=== PATIENT | male | born 1970 | race Caucasian/White ===

== ENCOUNTER 2021-02-15 12:22 | Emergency (ER) | payer OTHER ==
[~2021-02-15] VITALS: Ht 180.3 cm; Wt 82.1 kg
--- NOTE | 2021-02-15 12:42 | NUR ---
PT BIBSELF C/O L small finger pain and swelling s/p glf while hiking 1 hr ago. SKIN INTACT. PT A/OX4. TOLERATING R/A WELL WITH NO SOB
--- NOTE | 2021-02-15 12:44 | NUR ---
KHADAR DOWNS AT PT'S BEDSIDE
--- NOTE | 2021-02-15 12:51 | NUR ---
DEGREASER OPERATOR AT PT'S BEDSIDE
[2021-02-15] MEDS ORDERED: IBUP-1955 PO (13:14)
--- NOTE | 2021-02-15 13:15 | NUR ---
SPLINT PUT ON PT'S LEFT PINK. EDUCATION GIVEN PT VERBALIZED UNDERSTANDING
--- NOTE | 2021-02-15 13:26 | NUR ---
Patient discharged to home in stable condition. RX Written and verbal after care instructions given. Patient verbalizes understanding of instruction. PT ambulatory with a steady gait
[2021-02-15 13:27] VITALS: BP 164/108
== END 2021-02-15 13:27 | disposition home or self-care (01) ==
LOC: ER 12:38
DX: S62.617A Displaced fracture of proximal phalanx of left little finger, initial encounter for closed fracture (principal); W01.0XXA Fall on same level from slipping, tripping and stumbling without subsequent striking against object, initial encounter; Y93.89 Activity, other specified; Y92.89 Other specified places as the place of occurrence of the external cause; Y99.8 Other external cause status
CPT/HCPCS: 73130-TC